=== PATIENT | male | born 1990 | race Caucasian/White ===

== ENCOUNTER 2017-05-17 16:37 | Emergency (ER) | payer SELFPAY ==
[~2017-05-17] VITALS: Ht 170.2 cm; Wt 77.0 kg
[2017-05-17 17:28] LABS: HEMATOCRIT 47.1 % (38.0-50.0); MCH 32.2 PG (29.0-34.0); MCHC 36.1 G/DL (30.0-36.0); MCV 89.2 FL (86-99); PLATELET COUNT 311 K/uL (156-360); RBC DIS.WIDTH-CV 13.2 % (11.8-14.6); RBC DIS.WIDTH-SD 42.7 % (39-53); RED BLOOD COUNT 5.28 M/uL (4.00-5.50); WHITE BLOOD COUNT 18.2 K/uL (4.1-10.2)
[2017-05-17 17:31] LABS: ALBUMIN 4.8 g/dL (3.2-4.8)
[2017-05-17 17:32] LABS: CHLORIDE 100 mEq/L (99-109); POTASSIUM 4.1 mEq/L (3.7-5.4); SODIUM 139 mEq/L (136-147)
[2017-05-17 17:34] LABS: GLUCOSE 156 mg/dL (70-99); TOTAL PROTEIN 7.9 g/dL (6.4-8.3)
[2017-05-17 17:36] LABS: TOTAL BILIRUBIN 0.9 mg/dL (0.0-1.0)
[2017-05-17 17:37] LABS: ALKALINE PHOSPHATASE 89 IU/L (3-129)
[2017-05-17 17:38] LABS: CREATININE 1.1 mg/dL (0.6-1.3); GFR ESTIMATE (CALCULATED) > 59 mL/min/ (58.99-99999)
[2017-05-17 17:39] LABS: AST (GOT) 29 IU/L (2-34); UREA NITROGEN (BUN) 10 mg/dL (9-23)
[2017-05-17 17:41] LABS: ALT (GPT) 69 IU/L (3-49)
[2017-05-17 21:23] LABS: APPEARANCE CLEAR ((CLEAR)); BILIRUBIN NEGATIVE; BLOOD NEGATIVE; COLOR YELLOW ((YELLOW)); GLUCOSE (STRIP) NEGATIVE; KETONES NEGATIVE; LEUKOCYTES NEGATIVE; NITRITE NEGATIVE; PROTEIN (STRIP) 30; SPECIFIC GRAVITY 1.025 (1.000-1.030); UCUL ADDED? NO
[2017-05-17] MEDS ORDERED: ZOFRAN ODT4 MG PO (21:58)
[2017-05-17 22:37] VITALS: BP 105/65
== END 2017-05-17 22:39 | disposition home or self-care (01) ==
LOC: EME 16:37
PROVIDERS: Nurse Practitioner Family
DX: A08.4 Viral intestinal infection, unspecified (principal); J45.909 Unspecified asthma, uncomplicated; F17.200 Nicotine dependence, unspecified, uncomplicated
CPT/HCPCS: 80053; 81003; 85027; 87502; 99281; 99284; J1885